=== PATIENT | male | born 1965 | race Caucasian/White ===

== ENCOUNTER 2018-06-26 05:48 | Day surgery (SDC) | payer OTHER ==
[~2018-06-26] VITALS: Ht 175.3 cm; Wt 99.1 kg
--- NOTE | ~2018-06-26 | OP ---
PATIENT NAME: CHILO STONE MEDICAL RECORD: [id number] :69 LOCATION:D.OPS ADMISSION DATE: SURGEON: NATI REBOLLEDO MD DATE OF OPERATION: 06/26/2018 PREOPERATIVE DIAGNOSES: 1. Melena. 2. Epigastric abdominal pain. 3. Cirrhosis. POSTOPERATIVE DIAGNOSES: 1. Melena. 2. Epigastric abdominal pain. 3. Cirrhosis. 4. Questionable Treadwell esophagus. 4. No etiology for the patient's epigastric abdominal pain or melena. 5. No esophageal varices. PROCEDURE: Esophagogastroduodenoscopy with antral and distal esophageal biopsies. SURGEON: Nati Rebolledo MD. SOCKET PULLER: None. BLOOD LOSS: Minimal. ANESTHESIA: IV sedation. COMPLICATIONS: None. The risks, possible complications and alternatives to the procedure were explained to the patient. He elects to proceed. The procedure was performed in the hospital due to the patient's high ASA class. The anesthesia staff was present due to the patient's high ASA class. ENDOSCOPIC COURSE: The patient was conveyed to endoscopy suite electively on 06/26/2018. IV sedation was induced by the anesthesia staff. A bite block was inserted. A gastroscope was inserted into the mouth. It was advanced easily into the hypopharynx. The esophagus was easily intubated as were the stomach and duodenum. Upon withdrawal, retroflexed and angulus views were obtained. Antral biopsies were obtained. Because the patient is on Eliquis, the biopsy sites were then made hemostatic with the electrocautery. There was no significant hiatal hernia. I withdrew into the distal esophagus. Distal esophageal biopsies were obtained. The endoscope was then withdrawn under direct vision. Due to the patient's melena, I would recommend a lower endoscopy to determine the source of bleeding. I will see the patient on a p.r.n. basis. Because of the patient's high ASA class, I would recommend that the colonoscopy, if the patient has not had one before, be performed in an ambulatory surgery center or in the hospital. TRANSINT:[id number] Voice Confirmation ID: [id number] DOCUMENT ID: [id number] OPERATIVE REPORT [id number] CHILO STONE ROBERT MD at 1603 CC: NATI NIELSEN MD, RAGHAVENDRA EVERETT and VILMA DUMONT MD [phone] DICTATION DATE: 06/26/1815 SETUP OPERATOR: 06/26/1837 [facility] 06/26/18 [id number] [place] [address]
--- NOTE | ~2018-06-26 | HP ---
PATIENT: CHILO STONE MEDICAL RECORD: [id number] ACCOUNT: [id number] LOCATION:[facility] : 69 ADMISSION DATE: 06/26/18 PCP: No PCP HISTORY AND PHYSICAL EXAMINATION CHIEF COMPLAINT: Epigastric abdominal pain. HISTORY: I have been asked to perform an upper endoscopy on the patient. We were going to do him at the endoscopy clinic out of the nursing home; however, he was too high risk. It is believed that he has cirrhosis. He denies hepatitis C. He thinks that the cirrhosis may be due to alcohol use in the past. I am here to evaluate him for his epigastric abdominal pain as well as for some melena and to evaluate him for esophageal varices. He has had no dysphagia. He has had no hematemesis. The risks, possible complications and alternatives to procedure were explained to the patient. He elects to proceed. SOCIAL HISTORY: Former smoker. PAST MEDICAL AND SURGICAL HISTORY: COPD, sleep apnea, bronchitis, hypertension, history of myocardial infarctions, history of coronary stents, gastroesophageal reflux, depression, non-insulin dependent diabetes mellitus, history of left kidney tumor, cirrhosis. MEDICATIONS: He is on a PPI as well as Eliquis. PHYSICAL EXAMINATION: GENERAL: The patient does not appear acutely ill. He does appear chronically ill. VITAL SIGNS: Reviewed. EARS: External ears appear normal. EYES: Extraocular movements are intact. NECK: Trachea is midline. CHEST: No intercostal retractions. PULMONARY: Nonlabored, no stridor. ABDOMEN: Nontender. EXTREMITIES: No peripheral cyanosis. INTEGUMENT: No rash. IMPRESSION: 1. Epigastric abdominal pain. 2. Cirrhosis. 3. Melena. PLAN: EGD. TRANSINT:[id number] Voice Confirmation ID: [id number] DOCUMENT ID: [id number] CC: RAGHAVENDRA Everett ANP Dr. Stuckey All at [facility] HISTORY AND PHYSICAL [id number] CHILO STONE ROBERT MD at 1603 CC: NATI NIELSEN MD, RAGHAVENDRA EVERETT and VILMA DUMONT MD [phone] DICTATION DATE: 06/26/18 0832 WELFARE ADVISER: 06/26/18 09 [facility] 06/26/18 [facility] [address] [place] [address]
[~2018-06-26 05:48] MED LIST: ABILIFY20 MG PO; ASPIRIN325 MG PO; CHRONULAC30 ML PO; COMBIVENT RESPIM4 GM INH; COUMADIN1 MG PO; COUMADIN10 MG PO; COUMADIN6 MG PO; CYCLOBENZAPRINE10 MG PO; DILAUDID8 MG; ELAVIL75 MG PO; EZFE 200200 MG PO; FERROUS SULFAT140 MG PO; GLUCOTROL ER2.5 MG PO; HYDROCODONE-APA1 TAB PO; ISOSORBIDE DINI20 MG PO; JANTOVEN10 MG PO; KLOR-CON 1010 MEQ PO; LASIX20 MG PO; LODINE400 MG PO; LOVENOX INJ100 MG/ML SC; LOVENOX INJ100 MG/ML SQ; MAXIPIME 2 GM/D52 G1 IV; METOPROLOL TAR100 M1 PO; MORPHINE IMMEDI30 M1 PO; NORVASC10 MG PO; PAXIL10 MG PO; PAXIL20 MG PO; PERCOCET 10/3251 TA1 PO; PRAVACHOL40 MG PO; PRILOSEC20 MG PO; PROVENTIL/2.5 MG/3 M INH; SINEMET 10/101 UDTAB PO; TOPAMAX50 MG PO
[2018-06-26] MEDS ORDERED: BAYER CHEWABLE81 MG PO (06:11)
[2018-06-26] MEDS ORDERED: PAMELOR75 MG PO (06:13)
[2018-06-26] MEDS ORDERED: MOBIC7.5 MG PO (06:14)
[2018-06-26] MEDS ORDERED: XOPENEX HFA15 GM INH (06:16)
[2018-06-26] MEDS ORDERED: ACETAMINOPHEN500 M1 PO (06:17)
[2018-06-26] MEDS ORDERED: LIPITOR20 MG PO (06:19)
[2018-06-26] MEDS ORDERED: ELIQUIS2.5 MG PO (06:20)
[2018-06-26 06:22] LABS: HEMOGLOBIN 15.1 g/dL (13.5-17.5); MCH 33.5 pg (26.0-34.0); MCV 93.1 fL (80.0-100.0); MEAN PLATELET VOLUME 9.7 fL (7.4-10.4); RBC 4.51 10x6/uL (4.20-6.10); RDW 12.2 % (11.5-14.5); WBC 6.6 10x3/uL (4.8-10.8)
[2018-06-26 06:37] VITALS: BP 142/81; Ht 175.3 cm; Wt 99.1 kg
[2018-06-26 06:48] LABS: APTT 32.7 SECONDS (22.8-39.4); INR 1.03 (0.85-1.17); PROTIME 13.1 SECONDS (11.6-15.0)
[2018-06-26 07:03] LABS: ALBUMIN 3.7 g/dL (3.4-5.0); ALKALINE PHOSPHATASE 88 U/L (46-116); ALT (SGPT) 39 U/L (10-68); BILIRUBIN - TOTAL 0.47 mg/dL (0.2-1.3); CALC OSMOLALITY 277 mosm/kg (275-300); CALCIUM 8.6 mg/dL (8.5-10.1); CARBON DIOXIDE 27.9 mmol/L (21.0-32.0); CHLORIDE - SERUM 104 mmol/L (98-107); CREATININE - SERUM 0.9 mg/dL (0.6-1.3); GLUCOSE 98 mg/dL (74-106); POTASSIUM - SERUM 3.9 mmol/L (3.5-5.1); PROTEIN - SERUM 7.3 g/dL (6.4-8.2); SODIUM 140 mmol/L (136-145); UREA NITROGEN 9 mg/dL (7-18); eGFR NON AFRICAN AMERICAN > 90 mL/min (90-120)
== END 2018-06-26 10:15 | disposition other institution (70) ==
LOC: D.OPS 05:48
PROVIDERS: Anesthesiology
DX: K21.0 Gastro-esophageal reflux disease with esophagitis (principal); J44.9 Chronic obstructive pulmonary disease, unspecified; G47.30 Sleep apnea, unspecified; I25.2 Old myocardial infarction; I11.9 Hypertensive heart disease without heart failure; Z95.5 Presence of coronary angioplasty implant and graft; F32.9 Major depressive disorder, single episode, unspecified; E11.9 Type 2 diabetes mellitus without complications; K74.60 Unspecified cirrhosis of liver; Z79.01 Long term (current) use of anticoagulants; Z01.812 Encounter for preprocedural laboratory examination